=== PATIENT | female | born 1985 | race Caucasian/White ===

== ENCOUNTER → 2018-04-28 | Outpatient (CLI) | payer SELFPAY ==
--- NOTE | 2018-04-28 15:52 | RADIOLOGY REPORT (SQ) ---
EXAM DESCRIPTION: U/S [id number] TRNABD 1GES W/ODOP COMPLETED DATE/TIME: 04/28/2018 3:02 pm REASON FOR STUDY: ENCOUNTER FOR SUPERVISION OF OTHER NORMAL , FIRST TRIMESTER Z34.81 ENCO UNTER FOR SUPRVSN OF NORMAL , FIRST TRIM COMPARISON: None. TECHNIQUE: Transvaginal static and realtime grayscale images acquired of the pelvis. Additional diogenes cted spectral and color Doppler images recorded. All images stored on PACs. [facility] [place] Not available. CLINICAL DATES: LMP 01/26/2018 13 weeks 1 day LIMITATIONS: None. FINDINGS: FETUS: Living intrauterine . ULTRASOUND EGA: 9 weeks 1 day ULTRASOUND DONY: 12/01/2018 CRL: 2.4 cm FHR: 171 beats per minute. SUBCHORIONIC BLEED: No SIZE OF BLEED: Not applicable. UTERUS: No masses or anomalies. 14 x 7.1 x 10 cm. CERVICAL LENGTH: 3.6 cm. Closed. RIGHT ADNEXA: Normal ovary with normal vascular flow. 3 x 3.1 x 1.7 cm. No adnexal free fluid. No adnexal masses. LEFT ADNEXA: Ovary not seen. No adnexal free fluid. No adnexal masses. FREE FLUID: None. OTHER: No other significant finding. IMPRESSION: LIVING INTRAUTERINE . EGA 9 weeks 1 day Trimester of : First - 0 to 13 weeks. TECHNICAL DOCUMENTATION: JOB ID: [id number] [employer]- All Rights Reserved rev-02/10 Reading location - IP/workstation name: [email or web address]
== END ==
LOC: WI 15:43
PROVIDERS: ATTEND Nurse Practitioner Women's Health
DX: Z34.81 Encounter for supervision of other normal pregnancy, first trimester (principal)
CPT/HCPCS: 76801

== ENCOUNTER 2018-06-18 07:34 | Emergency (ER) | payer MEDICAID ==
[2018-06-18 08:40] LABS: ABSOLUTE LYMPHOCYTES (AUTO) 0.9 10^3/uL (0.5-4.7); ABSOLUTE MONOCYTES (AUTO) 0.6 10^3/uL (0.1-1.4); BASOPHILS % (AUTO) 0.2 % (0-2); EOSINOPHILS % (AUTO) 0.1 % (0-6); HEMATOCRIT 38.1 % (36.0-47.0); HEMOGLOBIN 12.9 g/dL (12.0-15.5); LYMPHOCYTES % (AUTO) 7.5 % (13-45); MEAN CORPUSCULAR HEMOGLOBIN 27.3 pg (27.0-33.4); MEAN CORPUSCULAR HGB CONC 33.9 g/dL (32.0-36.0); MEAN CORPUSCULAR VOLUME 81 fl (80-97); MONOCYTES % (AUTO) 5.3 % (3-13); PLATELET COUNT 288 10^3/uL (150-450); RED BLOOD COUNT 4.73 10^6/uL (3.72-5.28); RED CELL DISTRIBUTION WIDTH 13.3 % (11.5-14.0); SEGMENTED NEUTROPHILS % (AUTO) 86.9 % (42-78); TOTAL CELLS COUNTED % (AUTO) 100 %; WHITE BLOOD COUNT 11.5 10^3/uL (4.0-10.5)
[2018-06-18] MEDS ORDERED: NORMAL SALINE 1000 ML 1,000 ML IV PRN (08:41)
[2018-06-18 08:51] LABS: APPEARANCE,URINE SLIGHTLY-CLOUDY; BILIRUBIN,URINE NEGATIVE (NEGATIVE); COLOR,URINE YELLOW; GLUCOSE, URINE NEGATIVE (NEGATIVE); KETONES,URINE 80 mg/dL (NEGATIVE); LEUKOCYTE ESTERASE,URINE NEGATIVE (NEGATIVE); NITRITE,URINE NEGATIVE (NEGATIVE); PROTEIN,URINE 30 mg/dL (NEGATIVE); URINE SPECIFIC GRAVITY 1.025
[2018-06-18 08:57] LABS: ALANINE AMINOTRANSFERASE 13 U/L (9-52); ALKALINE PHOSPHATASE 89 U/L (38-126); ANION GAP 9 (5-19); ASPARTATE AMINO TRANSFERASE 18 U/L (14-36); BILIRUBIN,DIRECT 0.5 mg/dL (0.0-0.4); BILIRUBIN,TOTAL 0.6 mg/dL (0.2-1.3); BLOOD UREA NITROGEN 6 mg/dL (7-20); CALCIUM 9.3 mg/dL (8.4-10.2); CARBON DIOXIDE 23 mmol/L (22-30); CHLORIDE 104 mmol/L (98-107); GLUCOSE 102 mg/dL (75-110); LIPASE 95.2 U/L (23-300); SODIUM 136.2 mmol/L (137-145)
[2018-06-18] MEDS ORDERED: DICYCLOMINE HCL INJ 20 MG/2 ML AMPULE IM PRN (09:46)
[2018-06-18] MEDS ORDERED: NORMAL SALINE 1000 ML 1,000 ML IV ONE (11:08)
[2018-06-18 12:59] LABS: URINE AMPHETAMINES SCREEN NEGATIVE; URINE BARBITURATES SCREEN NEGATIVE; URINE BENZODIAZEPINES SCREEN NEGATIVE; URINE COCAINE SCREEN NEGATIVE; URINE MARIJUANA (THC) SCREEN NEGATIVE; URINE METHADONE SCREEN NEGATIVE; URINE PHENCYCLIDINE SCREEN NEGATIVE
--- NOTE | 2018-06-18 13:23 | RADIOLOGY REPORT (SQ) ---
EXAM DESCRIPTION: U/S OB 14+ TRNABD 1GES W/O DOP COMPLETED DATE/TIME: 06/18/2018 12:59 pm REASON FOR STUDY: right abd pain and flank COMPARISON: 04/28/2018 OB ultrasound TECHNIQUE: Static and Dynamic grayscale imaging performed of gravid uterus using transabdominal appr oach. Additional selected color Doppler and spectral images recorded. All stored on PACS. LIMITATIONS: None. FINDINGS: Quantitative HCG 47,967 EGA: By multiple measurements, 16 weeks 2 days DONY: 12/01/2018 EFW: Not calculated PERCENTILE: Not applicable. Fetus less than or equal to 20 weeks gestation. COLLIN: Adequate PLACENTA: Developing anteriorly. During the study a Mitchell Condon contraction came and went PRESENTATION: Variable ANATOMY: HEART RATE: 160 beats per minute. FOUR CHAMBER HEART: Not well seen THREE VESSEL CORD: Not well seen CORD INSERTION: Not well seen KIDNEYS AND BLADDER: Visualized. Appear normal. STOMACH: Visualized. Appears normal. SPINE: Normal as visualized. BRAIN AND LATERAL VENTRICLES: Visualized. Appear normal. OTHER: No other significant finding. MATERNAL ADNEXA: Maternal ovaries not visualized. CERVICAL LENGTH: Not visualized. OTHER: No other significant finding. IMPRESSION: LIVING INTRAUTERINE . ESTIMATED GESTATIONAL AGE 16 weeks 2 days NO VISUALIZED ANOMALIES. Trimester of : Second trimester - 13 weeks 1 day to 27 weeks 6 days. TECHNICAL DOCUMENTATION: JOB ID: [id number] [employer]- All Rights Reserved Reading location - IP/workstation name: [email or web address]
--- NOTE | 2018-06-18 13:25 | RADIOLOGY REPORT (SQ) ---
EXAM DESCRIPTION: U/S RETROPERITON LTD COMPLETED DATE/TIME: 06/18/2018 12:59 pm REASON FOR STUDY: right abd pain and flank COMPARISON: OB ultrasound same date TECHNIQUE: Dynamic and static grayscale images acquired of the kidneys and bladder and recorded on P ACS. Additional selected color Doppler and spectral images recorded. LIMITATIONS: None. FINDINGS: RIGHT KIDNEY: Normal size, 10.8 cm in length. Normal echogenicity. No solid or suspic ious masses. No hydronephrosis. No calcifications. LEFT KIDNEY: Normal size, 11.6 cm in length. Normal echogenicity. No solid or suspicious masses. No hydronephrosis. No calcifications. BLADDER: No masses. OTHER FINDINGS: No other significant finding. IMPRESSION: NORMAL RENAL AND BLADDER ULTRASOUND. TECHNICAL DOCUMENTATION: JOB ID: [id number] [employer]- All Rights Reserved Reading location - IP/workstation name: [email or web address]
[2018-06-18] MEDS ORDERED: MORPHINE SULFATE 10 MG/ML INJ IV ONE ×2 (13:54→17:07)
[2018-06-18] MEDS ORDERED: PROMETHAZINE HCL INJ 25 MG/1 ML VIAL IV ONE (13:54)
--- NOTE | 2018-06-18 16:08 | RADIOLOGY REPORT (SQ) ---
EXAM DESCRIPTION: MRI PELVIS WITHOUT COMPLETED DATE/TIME: 06/18/2018 1:58 pm REASON FOR STUDY: possible appendisitis COMPARISON: OB ultrasound 06/18/2018 Renal ultrasound 06/18/2018 TECHNIQUE: Multiplanar multisequence imaging performed without contrast including axial, sagittal an d coronal T2, axial T1, sagittal inversion recovery. LIMITATIONS: None. FINDINGS: The patient is 16 weeks , with right flank and right pelvic pain. Non contrasted MRI of the abdomen and pelvis was performed, with axial T2 and T1, coronal T2 and T1 n on contrasted images. The appendix is identified along the rightward lateral aspect of cecum, on coronal series 13, image 2 0. No periappendiceal fluid or inflammation in the adjacent fat. Gravid uterus with 16 week fetus in the pelvis. Normal size ovaries. No free pelvic fluid. No hydr onephrosis or hydroureter. Limited view of the pancreas and upper abdominal organs unremarkable. IMPRESSION: No MR evidence of acute appendicitis. TECHNICAL DOCUMENTATION: JOB ID: [id number] [employer]- All Rights Reserved Reading location - IP/workstation name: [email or web address]
--- NOTE | 2018-06-18 17:03 | ER Document Report ---
ED GI/ - General Chief Complaint: Nausea/Vomiting/Diarrhea Stated Complaint: VOMITING Time Seen by Provider: 06/18/18 09:28 Mode of Arrival: Ambulatory Information source: Patient Notes: Patient is a 33-year-old female who states she is approximately 16 weeks . She also states that she is 7 para 6. She comes in with complaint of right lower quadrant pain with diffuse upper abdominal discomfort. Patient states that she started with the pain and discomfort last night and it has gotten worse throughout the day today. She states she is nauseated and feels like she has something in the right lower quadrant that is pulling. She denies fever she denies dysuria she denies discharge patient also is with her mother who informs me that patient has lost sensation in her legs secondary to the epidural that she received in 2017. Patient is also had a cholecystectomy 2 years ago. TRAVEL OUTSIDE OF THE [place] IN LAST 30 DAYS: No - HPI Patient complains to provider of: Abdominal pain, Flank pain, Pelvic pain, Onset: Other - Last evening Timing/Duration: Sudden Quality of pain: Burning, Cramping, Throbbing Severity at maximum: Severe Severity in ED: Moderate Pain Level: 3 Context: Location: RLQ, Right flank, Pelvis Vaginal bleeding (Compared to normal period): None Menstrual period history: : 7 Para: 6 Abortions: 0 Sexual history: Active Associated symptoms: Diarrhea Exacerbated by: Movement, Walking Relieved by: Denies Similar symptoms previously: No Recently seen / treated by doctor: No - Related Data Allergies/Adverse Reactions: No Known Allergies Allergy (Unverified 06/18/18 07:35) Past Medical History - General Information source: Patient, Relative - Social History Smoking Status: Unknown if Ever Smoked Cigarette use (# per day): No Chew tobacco use (# tins/day): No Smoking Education Provided: No Frequency of alcohol use: None Drug Abuse: None Lives with: Family Family History: Reviewed & Not Pertinent Patient has suicidal ideation: No Patient has homicidal ideation: No - Medical History Medical History: Negative Renal/ Medical History: Denies: Hx Peritoneal Dialysis Review of Systems - Review of Systems Constitutional: No symptoms reported EENT: No symptoms reported Cardiovascular: No symptoms reported Respiratory: No symptoms reported Gastrointestinal: Abdominal pain, Nausea, Vomiting Genitourinary: See HPI, Flank pain. denies: Dysuria, Hematuria, Urgency, Retention Female Genitourinary: See HPI Musculoskeletal: No symptoms reported Skin: No symptoms reported Hematologic/Lymphatic: No symptoms reported Neurological/Psychological: No symptoms reported -: Yes All other systems reviewed and negative Physical Exam - Vital signs Vitals: Temp Pulse Resp BP Pulse Ox 98.2 F 98 20 113/62 99 06/18/18 07:39 06/18/18 07:39 06/18/18 07:39 06/18/18 07:39 06/18/18 07:39 Interpretation: Normal - Notes Notes: Patient is a 33-year-old female no apparent distress but uncomfortable appearing. - General General appearance: Alert - HEENT Head: Normocephalic, Atraumatic Eyes: Normal Conjunctiva: Normal Pharynx: Normal Neck: Normal - Respiratory Respiratory status: No respiratory distress Chest status: Nontender Breath sounds: Normal. No: Rales, Rhonchi, Stridor, Wheezing Chest palpation: Normal - Cardiovascular Rhythm: Regular Heart sounds: Normal auscultation Murmur: No - Abdominal Distension: No distension Bowel sounds: Normal Tenderness: Tender, McBurney's point, Guarding. No: Shea's sign, Rebound Organomegaly: No organomegaly - Genitourinary Vaginal bleeding: None Notes: Examination of patient's abdomen and pelvic area shows that she has a abdomen. Fundus is approximately the gestational age of 16 weeks. Mild tenderness suprapubically to palpation. Patient also has some right sided tenderness to palpation. She has some mild guarding on the right lower quadrant area. Presentation is that the presents itself as round ligament syndrome however cannot totally exclude the possibility of appendicitis. - Back Back: Normal - Extremities General upper extremity: Normal inspection, Nontender, Normal ROM, Normal strength General lower extremity: Normal inspection, Nontender, Normal ROM, Normal strength - Neurological Neuro grossly intact: Yes Cognition: Normal Orientation: AAOx4 [place] Coma Scale Eye Opening: Spontaneous [place] Coma Scale Verbal: Oriented [place] Coma Scale Motor: Obeys Commands [place] Coma Scale Total: 15 - Skin Skin Temperature: Warm Skin Moisture: Dry Skin Color: Normal, [place] Course - Re-evaluation Re-evalutation: 06/18/18 17:47 Findings; patient is been an extremely difficult medical patient to follow. She is 16 weeks and I did the ultrasound to show there was no abnormalities with the fetus. Ultrasound comes back negative for any acute findings and fetus is in good shape at 16 weeks. I also added on a renal ultrasound given the fact that she had flank pain on that right side. Renal ultrasound came back negative. I proceeded to do 2 rounds of fluid boluses I also used Bentyl 10 mg IM trying to relieve patient's discomfort. We have also tried doing positional body laying without any success in reduction reduction of pain. Patient had a slightly elevated white count however white count is expected in . Given that she continues to hurt in her right lower quadrant area I discussed the case with Dr. Wheeler and felt that we needed to go with the MRI of the abdomen to rule out appendicitis. I sit down with patient and mother explained to them the reasoning behind doing the MRI the risks that were involved with the MRI and the radiologist would talk to them about giving clearance as well. I explained to them that if it is not an appendicitis it still could be the round ligament syndrome that is just presented itself in a prominent manner. So I could not guarantee that doing the MRI was going to be 100% diagnostic. Patient elected on her own to do the MRI. MRI results come back and appendix is normal and there were no acute findings on it either. Given the patient's other labs are normal her urine is clean we have to assume at this point this is a round ligament syndrome that is just not responding to the fluid boluses and/or the Bentyl. Patient has stated has had 6 live births and she has a FABRICATOR INDUSTRIAL FURNACE she can contact first thing in the morning. I have given her a copy of the MRI. And informed her that she needs to see that UNDERGROUND TRUCK OPERATOR first thing in the morning. Patient and mother agree they will follow this path however they will return to ER if there are any concerns or problems that arise between now and then. - Vital Signs Vital signs: Temp Pulse Resp BP Pulse Ox 98.2 F 98 20 113/62 99 06/18/18 07:39 06/18/18 07:39 06/18/18 07:39 06/18/18 07:39 06/18/18 07:39 - Laboratory Result Diagrams: 06/18/18 08:33 06/18/18 08:33 Laboratory results interpreted by me: 06/18/18 06/18/18 06/18/18 08:33 08:33 08:33 WBC 11.5 H Seg Neutrophils % 86.9 H Lymphocytes % 7.5 L Absolute Neutrophils 10.0 H Sodium 136.2 L BUN 6 L Direct Bilirubin 0.5 H Beta HCG, Quant 46667.00 H Urine Protein 30 H Urine Ketones 80 H Urine Urobilinogen 4.0 H Discharge - Discharge Clinical Impression: Abdominal pain affecting , Round ligament pain Disposition: HOME, SELF-CARE Instructions: Antinausea Medication ([facility]), Antispasmodics ([facility]), Diarrhea, Nonspecific ([facility]), Vomiting ([facility]), Pelvic Pain in and Round Ligament Pain ([facility]) Additional Instructions: Them and rest. I have written you for some Bentyl which may help orally. Also written for some Phenergan for nausea. As we discussed the importance of follow -up with your UNDERGROUND TRUCK OPERATOR tomorrow take him a copy of the MRI report. Return to ER if you have any concerns or problems. Prescriptions: Dicyclomine HCl [Bentyl 20 mg Tablet] 20 mg PO QID PRN #20 tablet PRN Reason: Promethazine HCl 25 mg PO Q6 PRN #15 tablet PRN Reason:
[2018-06-18 17:55] VITALS: BP 111/64
== END 2018-06-18 18:03 | disposition home or self-care (01) ==
LOC: ER 07:34
DX: O26.892 Other specified pregnancy related conditions, second trimester (principal); R10.2 Pelvic and perineal pain; R10.31 Right lower quadrant pain; R19.7 Diarrhea, unspecified; O21.9 Vomiting of pregnancy, unspecified; Z3A.16 16 weeks gestation of pregnancy; Z90.49 Acquired absence of other specified parts of digestive tract
CPT/HCPCS: 96376; 99284; 96372; 96361; 96374; 96375; 36415; 84702; 83690; 85025; 80053; 81001; 80307; 72195; 76775; 76805; J0500; J2270; J2550

== ENCOUNTER 2018-10-21 12:47 | Outpatient (CLI) | payer MEDICAID ==
[2018-10-21 16:17] LABS: APPEARANCE,URINE CLEAR; BILIRUBIN,URINE NEGATIVE (NEGATIVE); COLOR,URINE YELLOW; GLUCOSE, URINE NEGATIVE (NEGATIVE); KETONES,URINE 80 mg/dL (NEGATIVE); LEUKOCYTE ESTERASE,URINE NEGATIVE (NEGATIVE); NITRITE,URINE NEGATIVE (NEGATIVE); PROTEIN,URINE NEGATIVE (NEGATIVE)
[2018-10-21 16:23] LABS: URINE AMPHETAMINES SCREEN NEGATIVE; URINE BARBITURATES SCREEN NEGATIVE; URINE BENZODIAZEPINES SCREEN NEGATIVE; URINE COCAINE SCREEN NEGATIVE; URINE MARIJUANA (THC) SCREEN NEGATIVE; URINE METHADONE SCREEN NEGATIVE; URINE PHENCYCLIDINE SCREEN NEGATIVE
[2018-10-21] MEDS ORDERED: TERBUTALINE SULFATE INJ/PF 1 MG/1 ML SDV ONE (17:08)
== END 2018-10-21 18:35 | disposition home or self-care (01) ==
LOC: LC 12:47
PROVIDERS: ATTEND Obstetrics & Gynecology
PROC: 4A1HXCZ Monitoring of Products of Conception, Cardiac Rate, External Approach (ICD-10-PCS; principal; 2018-10-21)
DX: Z34.93 Encounter for supervision of normal pregnancy, unspecified, third trimester (principal)
CPT/HCPCS: 80307; 81001; J3105

== ENCOUNTER 2018-11-21 11:24 | Outpatient (CLI) | payer MEDICAID ==
[2018-11-21 12:41] LABS: APPEARANCE,URINE SLIGHTLY-CLOUDY; BILIRUBIN,URINE NEGATIVE (NEGATIVE); COLOR,URINE YELLOW; GLUCOSE, URINE NEGATIVE (NEGATIVE); KETONES,URINE 20 mg/dL (NEGATIVE); LEUKOCYTE ESTERASE,URINE TRACE (NEGATIVE); NITRITE,URINE NEGATIVE (NEGATIVE); PROTEIN,URINE NEGATIVE (NEGATIVE); URINE SPECIFIC GRAVITY 1.006; UROBILINOGEN,URINE NEGATIVE mg/dL (<2.0)
[2018-11-21 14:00] LABS: URINE AMPHETAMINES SCREEN NEGATIVE; URINE BARBITURATES SCREEN NEGATIVE; URINE BENZODIAZEPINES SCREEN NEGATIVE; URINE COCAINE SCREEN NEGATIVE; URINE MARIJUANA (THC) SCREEN NEGATIVE; URINE METHADONE SCREEN NEGATIVE; URINE PHENCYCLIDINE SCREEN NEGATIVE
[2018-11-21] MEDS ORDERED: HYDROXYZINE PAMOATE 50 MG CAPSULE ONE (14:35)
[2018-11-21] MEDS ORDERED: HYDROXYZINE PAMOATE 50 MG CAPSULE PO ONE (14:37)
--- NOTE | 2018-11-21 14:46 | Non Stress Test Report ---
Non Stress Test Datetime Report Generated by CPN: 11/21/2018 14:46 DEMOGRAPHIC EGA NST: 38.6 INDICATION Indication for Study: Ordered by Provider Indication for Study: Ordered by Provider Indication for Study (NST) Other: LC MONITORING Monitor Explained: Monitor Explained; Test Explained; Patient Verbalized Understanding Monitor Explained: Monitor Explained; Test Explained; Patient Verbalized Understanding Time on Monitor: 11/21/2018 11:42 Time on Monitor: 10/21/2018 13:08 Time off Monitor: 11/21/2018 12:30 Time off Monitor: 10/21/2018 15:45 NST Duration: 48 NST Duration: 157 NST INTERVENTIONS NST Interventions: PO Hydration NST Interventions: PO Hydration; IV Fluids; Reposition Patient Physician Notified NST: Zackary Shannon CNM Physician Notified NST: Dr. Woods BABY A: [id number] BABY A Movement : Present Movement : Present Contraction Frequency : irregular Contraction Frequency : 2-3 FHR Baseline : 135 Accelerations : 15X15 Accelerations : 15X15 Decelerations : None Variability : Moderate 6-25bpm Variability : Moderate 6-25bpm NST Review: Meets Criteria for Reactive NST NST Review: Meets Criteria for Reactive NST NST Review and Verified By : Bhavna Vee RNC NST Review and Verified By : Jesus Bashir RNC-OB NST Results: Reactive NST Results: Reactive NST REPORT Report Trigger: Send Report
--- NOTE | 2018-11-21 14:51 | Non Stress Test Report ---
Non Stress Test Datetime Report Generated by CPN: 11/21/2018 14:51 DEMOGRAPHIC EGA NST: 38.6 INDICATION Indication for Study: Ordered by Provider MONITORING Monitor Explained: Monitor Explained; Test Explained; Patient Verbalized Understanding Time on Monitor: 11/21/2018 11:30 Time off Monitor: 11/21/2018 12:30 NST Duration: 60 NST INTERVENTIONS NST Interventions: PO Hydration Physician Notified NST: N Shannon CNM BABY A Movement : Present Contraction Frequency : irregular FHR Baseline : 135 Accelerations : 15X15 Accelerations : 15X15 Decelerations : None Decelerations : None Variability : Moderate 6-25bpm NST Review: Meets Criteria for Reactive NST NST Review and Verified By : DAREN Rcici Results: Reactive NST REPORT Report Trigger: Send Report
== END 2018-11-21 14:49 | disposition home or self-care (01) ==
LOC: LC 11:24
PROVIDERS: ATTEND Student in an Organized Health Care Education/Training Program
PROC: 4A1HXCZ Monitoring of Products of Conception, Cardiac Rate, External Approach (ICD-10-PCS; principal; 2018-11-21)
DX: Z34.93 Encounter for supervision of normal pregnancy, unspecified, third trimester (principal)
CPT/HCPCS: 59025; 81005; 80307; J3490

== ENCOUNTER 2018-12-01 14:10 | Outpatient (CLI) | payer MEDICAID ==
--- NOTE | 2018-12-01 15:04 | Non Stress Test Report ---
Non Stress Test Datetime Report Generated by CPN: 12/01/2018 15:04 DEMOGRAPHIC EGA NST: 40.2 INDICATION Indication for Study: Ordered by Provider Indication for Study (NST) Other: postdates repeat from office MONITORING Monitor Explained: Monitor Explained; Test Explained; Patient Verbalized Understanding Time on Monitor: 12/01/2018 14:19 Time off Monitor: 12/01/2018 14:50 NST Duration: 31 NST INTERVENTIONS NST Interventions: PO Hydration; Reposition Patient Physician Notified NST: J Villa CNM BABY A: [id number] BABY A Movement : Present Contraction Frequency : irrit FHR Baseline : 140 Accelerations : 15X15 Decelerations : None Variability : Moderate 6-25bpm NST Review: Meets Criteria for Reactive NST NST Review and Verified By : DAREN Fletcher Results: Reactive NST REPORT Report Trigger: Send Report
== END 2018-12-01 14:53 | disposition home or self-care (01) ==
LOC: LC 14:10
PROVIDERS: ATTEND Obstetrics & Gynecology
DX: O36.8390 Maternal care for abnormalities of the fetal heart rate or rhythm, unspecified trimester, not applicable or unspecified (principal)
CPT/HCPCS: 59025

== ENCOUNTER 2018-12-03 18:27 | Outpatient (CLI) | payer MEDICAID ==
[2018-12-03 19:07] LABS: APPEARANCE,URINE SLIGHTLY-CLOUDY; BILIRUBIN,URINE NEGATIVE (NEGATIVE); COLOR,URINE STRAW; GLUCOSE, URINE NEGATIVE (NEGATIVE); KETONES,URINE NEGATIVE (NEGATIVE); LEUKOCYTE ESTERASE,URINE NEGATIVE (NEGATIVE); NITRITE,URINE NEGATIVE (NEGATIVE); PROTEIN,URINE NEGATIVE (NEGATIVE); URINE SPECIFIC GRAVITY 1.003; UROBILINOGEN,URINE NEGATIVE mg/dL (<2.0)
[2018-12-03 19:22] LABS: URINE AMPHETAMINES SCREEN NEGATIVE; URINE BARBITURATES SCREEN NEGATIVE; URINE BENZODIAZEPINES SCREEN NEGATIVE; URINE COCAINE SCREEN NEGATIVE; URINE MARIJUANA (THC) SCREEN NEGATIVE; URINE METHADONE SCREEN NEGATIVE; URINE PHENCYCLIDINE SCREEN NEGATIVE
[2018-12-03 19:25] LABS: ABSOLUTE EOSINOPHILS # (AUTO) 0.1 10^3/uL (0.0-0.6); ABSOLUTE LYMPHOCYTES (AUTO) 2.3 10^3/uL (0.5-4.7); ABSOLUTE MONOCYTES (AUTO) 0.7 10^3/uL (0.1-1.4); ABSOLUTE NEUT (AUTO) 7.7 10^3/uL (1.7-8.2); BASOPHILS % (AUTO) 0.3 % (0-2); EOSINOPHILS % (AUTO) 0.6 % (0-6); HEMATOCRIT 30.1 % (36.0-47.0); HEMOGLOBIN 10.1 g/dL (12.0-15.5); LYMPHOCYTES % (AUTO) 21.2 % (13-45); MEAN CORPUSCULAR HEMOGLOBIN 25.5 pg (27.0-33.4); MEAN CORPUSCULAR HGB CONC 33.6 g/dL (32.0-36.0); MEAN CORPUSCULAR VOLUME 76 fl (80-97); MONOCYTES % (AUTO) 6.7 % (3-13); PLATELET COUNT 296 10^3/uL (150-450); RED BLOOD COUNT 3.98 10^6/uL (3.72-5.28); RED CELL DISTRIBUTION WIDTH 14.5 % (11.5-14.0); SEGMENTED NEUTROPHILS % (AUTO) 71.2 % (42-78); TOTAL CELLS COUNTED % (AUTO) 100 %; WHITE BLOOD COUNT 10.8 10^3/uL (4.0-10.5)
[2018-12-03 19:34] LABS: UR PRO/CREAT RATIO RESULT 0.8 mg/mg (0.0-0.2); URINE CREATININE 23.4 mg/dL (16-327); URINE PROTEIN 18.6 mg/dL (<12)
[2018-12-03 19:45] LABS: ALANINE AMINOTRANSFERASE 11 U/L (9-52); ALBUMIN 3.4 g/dL (3.5-5.0); ALKALINE PHOSPHATASE 248 U/L (38-126); ANION GAP 8 (5-19); ASPARTATE AMINO TRANSFERASE 18 U/L (14-36); BILIRUBIN,DIRECT 0.1 mg/dL (0.0-0.4); BILIRUBIN,TOTAL 0.4 mg/dL (0.2-1.3); BLOOD UREA NITROGEN 8 mg/dL (7-20); CALCIUM 9.2 mg/dL (8.4-10.2); CARBON DIOXIDE 24 mmol/L (22-30); CHLORIDE 103 mmol/L (98-107); GLUCOSE 106 mg/dL (75-110); SODIUM 134.9 mmol/L (137-145); URIC ACID 4.5 mg/dL (2.5-6.2)
--- NOTE | 2018-12-03 20:34 | L&D Progress Notes ---
PROGRESS NOTES Datetime Report Generated by CPN: 12/03/2018 20:34 PROGRESS NOTE Impression Other: irregular contractions, headache Procedures- Other: monitor Plan Other: PIH labs Vital Signs : Reviewed; Within Normal Limits Comment: Pt states that she has had a headache x 3 days. PIH work up Negative, except UTP 0.8. Pt does not want to try any meds for her headache. Has appt in the office on Tuesday. Cervix 2/50%/-3/ballotable. LAST VAGINAL EXAM-NURSING Dilitation: 2.0 Dilitation: 1.5 Dilitation: ft Dilitation: 1.0 Dilitation: 1.0 Effacement: 50 Effacement: 50 Effacement: thick Effacement: thick Effacement: thick Station: ballotable Station: -2 Station: -2 Contractions: irritability present FETUS A FHR - Baseline: 160s Monitoring: External US Variability: Moderate 6-25bpm Accelerations: 15X15 Decelerations: None FHR Category: Category I : 40.4 SIGNATURE SIGNATURE: [id number];,[id number] SIGNATURE: [id number] SIGNATURE: [id number] SIGNATURE: [id number] Signature: with User ID: [email or web address]
== END 2018-12-03 20:43 | disposition home or self-care (01) ==
LOC: LC 18:27
PROVIDERS: ATTEND Obstetrics & Gynecology
PROC: 4A1HXCZ Monitoring of Products of Conception, Cardiac Rate, External Approach (ICD-10-PCS; principal; 2018-12-03)
DX: O47.1 False labor at or after 37 completed weeks of gestation (principal); O26.893 Other specified pregnancy related conditions, third trimester; R51 Headache; O48.0 Post-term pregnancy; Z3A.40 40 weeks gestation of pregnancy
CPT/HCPCS: 36415; 59025; 80053; 80307; 81005; 82570; 83615; 84156; 84550; 85025

== ENCOUNTER 2018-12-08 06:33 | Inpatient (IN) | payer MEDICAID ==
--- NOTE | 2018-12-08 06:35 | Non Stress Test Report ---
Non Stress Test Datetime Report Generated by CPN: 12/08/2018 06:35 DEMOGRAPHIC Test Number: 5 EGA NST: 40.4 INDICATION Indication for Study: Ordered by Provider URINE RESULTS Urine Protein, NST: Negative Urine Ketones - NST: Negative Urine Glucose - NST: Negative Urine Blood - NST: Negative MONITORING Monitor Explained: Monitor Explained; Test Explained; Patient Verbalized Understanding Time on Monitor: 12/03/2018 18:40 Time off Monitor: 12/03/2018 20:35 NST Duration: 115 NST INTERVENTIONS NST Interventions: None Physician Notified NST: Dr. Younger BABY A: [id number] BABY A Movement : Present Contraction Frequency : irregular FHR Baseline : 150 Accelerations : 15X15 Variability : Moderate 6-25bpm NST Review: Meets Criteria for Reactive NST NST Review and Verified By : ELIAN Pan NST Results: Reactive NST REPORT Report Trigger: Send Report
[2018-12-08] MEDS ORDERED: RINGERS SOLUTION,LACTATED 1,000 ML IV ONE (06:46)
[2018-12-08 07:36] LABS: ABSOLUTE BASOPHILS # (AUTO) 0.1 10^3/uL (0.0-0.2); ABSOLUTE EOSINOPHILS # (AUTO) 0.1 10^3/uL (0.0-0.6); ABSOLUTE LYMPHOCYTES (AUTO) 2.4 10^3/uL (0.5-4.7); ABSOLUTE MONOCYTES (AUTO) 0.8 10^3/uL (0.1-1.4); ABSOLUTE NEUT (AUTO) 5.6 10^3/uL (1.7-8.2); BASOPHILS % (AUTO) 0.8 % (0-2); EOSINOPHILS % (AUTO) 0.8 % (0-6); HEMATOCRIT 30.5 % (36.0-47.0); HEMOGLOBIN 10.3 g/dL (12.0-15.5); LYMPHOCYTES % (AUTO) 27.1 % (13-45); MEAN CORPUSCULAR HEMOGLOBIN 25.5 pg (27.0-33.4); MEAN CORPUSCULAR HGB CONC 33.7 g/dL (32.0-36.0); MEAN CORPUSCULAR VOLUME 76 fl (80-97); MONOCYTES % (AUTO) 8.6 % (3-13); PLATELET COUNT 281 10^3/uL (150-450); RED BLOOD COUNT 4.02 10^6/uL (3.72-5.28); RED CELL DISTRIBUTION WIDTH 14.5 % (11.5-14.0); SEGMENTED NEUTROPHILS % (AUTO) 62.7 % (42-78); TOTAL CELLS COUNTED % (AUTO) 100 %; WHITE BLOOD COUNT 8.9 10^3/uL (4.0-10.5)
--- NOTE | 2018-12-08 07:47 | Admission Physical ---
Datetime Report Generated by CPN: 12/08/2018 07:46 CURRENT ADMISSION Chief Complaint: Scheduled Induction of Labor Indication for Induction: Post Dates Admit Impression : Term, Intrauterine ; No Active Labor Admit Plan: Admit to Unit; Initiate Labor Induction Protocol ALLERGIES Medication Allergies: No Medication Allergies: No Known Allergies (12/08/2018) Latex: No Latex Allergies Food Allergies: None Environmental Allergies: None OBSTETRICAL HISTORY EDC: 11/29/2018 00:00 : 7 Para: 6 Term: 6 : 0 SAB: 0 IAB: 0 Ectopic: 0 Livin Cesareans: 0 VBACs: 0 Multiple Births: 0 Gestational Diabetes: No Rh Sensitization: No Incompetent Cervix: No DEBI: No Infertility: No ART Treatment: No Uterine Anomaly: No IUGR: No Hx Previous C/S: No Macrosomia: No Hx Loss/Stillborn: No PIH: No Hx : No Placenta Previa/Abruption: No Depression/PP Depression: No PTL/PROM: No Post Hemorrhage: Yes Current Procedures: Ultrasound; NST Obstetrical History Comments: G1- 2005, G2- 2008, G3- 2009, , GDM, and hemorrage, D_D. G4- 2011, G5- 2015, G6- 2016, , GDM G7- Current SEE RECORDS Alcohol: No Marijuana : No Cocaine: No Other Illicit Drugs: No Cigarettes: Never Smoker. [id number] MEDICAL HISTORY Diabetes: No Blood Transfusion: No Pulmonary Disease (Asthma, TB): No Breast Disease: No Hypertension: No Rubber Goods Assembler Surgery: No Heart Disease: No Hosp/Surgery: Yes Autoimmune Disorder: No Anesthetic Complications: No Kidney Disease: No Abnormal Pap Smear: No Neuro/Epilepsy: No Psychiatric Disorders: No Other Medical Diseases: No Hepatitis/Liver Disease: No Significant Family History: No Varicosities/Phlebitis: No Trauma/Violence : No Thyroid Dysfunction: No Medical History Comments: Hospitalizaton childbirth, Gallbladder removed. Abnormal Pap smear- 2009 INFECTIOUS HISTORY Gonorrhea: No Genital Herpes: No Chlamydia: No Tuberculosis: No Syphilis: No Hepatitis: No HIV/AIDS Exposure: No Rash or Viral Illness: No HPV: No PHYSICAL EXAM General: Normal HEENT: Normal Neurologic: Normal Thyroid: Normal Heart: Normal Lungs: Normal Breast: Normal Back: Normal Abdomen: Normal Genitourinary Exam: Normal Extremities: Normal DTRs: Normal Pelvic Type: Adequate Vital Signs: Reviewed; Within Normal Limits VAGINAL EXAM Dilatation: 2-3 Effacement: 50 Station: -3 Contraction Comments: irregular MEMBRANES Membranes: Intact FETUS A EGA: 41.2 Monitoring: External US FHR- Baseline: 140s Decelerations: None FHR Category: Category I Admit Comment: GBS Neg PLANS FOR LABOR AND DELIVERY Labor and Delivery: None Pain Management: Natural Feeding Preference: Breast Circumcision: Yes INFORMED CONSENT Signature: with User ID: [email or web address]
[2018-12-08] MEDS ORDERED: NORMAL SALINE 250 ML IV PRN (08:19)
--- NOTE | 2018-12-08 08:35 | L&D Progress Notes ---
PROGRESS NOTES Datetime Report Generated by CPN: 12/08/2018 08:35 PROGRESS NOTE Procedures: Artificial ROM Plan: Induction Comment: at 41w here for IOL, AROM for method of induction, pitocin if needed. anticipate VAGINAL EXAM Dilatation: 4 Dilatation: 2-3 Effacement: 75 Effacement: 50 Station: -2 Station: -3 Contractions: rare Contractions: irregular LAST VAGINAL EXAM-NURSING Dilitation: 4.0 Effacement: 75 Station: -2 MEMBRANES Membranes: Ruptured Membranes: Intact Amniotic Fluid Color: Meconium, Heavy FETUS A FHR - Baseline: 155 Monitoring: External US Variability: Moderate 6-25bpm Accelerations: 15X15 Decelerations: None : 41+2 : 41.2 SIGNATURE SIGNATURE: [id number];[id number];[id number] SIGNATURE: [id number];10,[id number];14,[id number] SIGNATURE: [id number];10,[id number] Assignment: Shekhar Flynn MD Signature: with User ID: [email or web address] : with User ID: [email or web address]
[2018-12-08] MEDS ORDERED: OXYTOCIN/NORMAL SALINE 20 UNIT/1,000 ML RTUINJ IV PRN ×2 (08:55→11:28)
[2018-12-08 09:06] LABS: APPEARANCE,URINE CLOUDY; BILIRUBIN,URINE NEGATIVE (NEGATIVE); GLUCOSE, URINE NEGATIVE (NEGATIVE); KETONES,URINE NEGATIVE (NEGATIVE); LEUKOCYTE ESTERASE,URINE TRACE (NEGATIVE); NITRITE,URINE NEGATIVE (NEGATIVE); PROTEIN,URINE 30 mg/dL (NEGATIVE); URINE SPECIFIC GRAVITY 1.021
[2018-12-08 09:07] LABS: COLOR,URINE YELLOW
[2018-12-08] MEDS ORDERED: OXYTOCIN/NORMAL SALINE 20 UNIT/1,000 ML RTUINJ ONE (09:15)
[2018-12-08 09:23] LABS: URINE AMPHETAMINES SCREEN NEGATIVE; URINE BARBITURATES SCREEN NEGATIVE; URINE BENZODIAZEPINES SCREEN NEGATIVE; URINE COCAINE SCREEN NEGATIVE; URINE MARIJUANA (THC) SCREEN NEGATIVE; URINE METHADONE SCREEN NEGATIVE; URINE PHENCYCLIDINE SCREEN NEGATIVE
[2018-12-08] MEDS ORDERED: PHENYLEPHRINE HCL INJ/PF 10 MG/1 ML SDV ONE (10:05)
[2018-12-08] MEDS ORDERED: FENTANYL CITRATE INJ/PF 100 MCG/2 ML AMPUL ONE (10:05)
[2018-12-08] MEDS ORDERED: EPHEDRINE SULFATE INJ 50 MG/1 ML AMPULE ONE (10:05)
[2018-12-08] MEDS ORDERED: LIDOCAINE 1.5%/EPINEPHRINE INJ 5 ML AMP ONE (10:06)
[2018-12-08] MEDS ORDERED: BUPIVACAINE HCL 0.25 % INJ/PF (2.5 MG/1 ML) 30 ML VIAL ONE (10:06)
[2018-12-08] MEDS ORDERED: FENTANYL/BUPIVACAINE/NS/PF 0 MCG/0 ML RTUINJ EPI ONE (10:06)
--- NOTE | 2018-12-08 11:05 | Delivery Summary ---
Del Sum A-C Datetime Report Generated by CPN: 12/08/2018 11:05 DELIVERY PERSONNEL DELIVERY PERSONNEL: [id number] Delivery Doctor:: Zulma Ordoñez CNM Labor and Delivery Nurse:: Loretta Kulkarni RNcostume cutter Nurse:: ELIAN Mack Student Observers:: C Reper T Aquiles Deliver Driver/GAS PUMP ATTENDANT: Ortega Kwan, PRIOR AUTHORIZATION TECHNICIAN MATERNAL INFORMATION Delivery Anesthesia: None Medications After Delivery: Pitocin Drip 20 Units/1000ml NSS Maternal Complications: Precipitous Labor (<3hrs) LABOR SUMMARY EDC: 11/29/2018 00:00 No. Babies in Womb: 1 Attempted: No Labor Anesthesia: None LABOR INFORMATION Reason for Induction: Post Dates Onset of Labor: 12/08/2018 10:30 Complete Dilatation: 12/08/2018 10:32 Oxytocin: Induction Group B Beta Strep: negative MEMBRANES Membranes Rupture Method: Artificial Rupture of Membranes: 12/08/2018 08:20 Length of Rupture (hr): 2.22 Amniotic Fluid Color: Moderate Meconium Amniotic Fluid Amount: Moderate Amniotic Fluid Odor: Normal STAGES OF LABOR Stage 1 hr: 0 Stage 1 min: 2 Stage 2 hr: 0 Stage 2 min: 1 Stage 3 hr: 0 Stage 3 min: 11 Total Time in Labor hr: 0 Total Time in Labor min: 14 VAGINAL DELIVERY Episiotomy: None Laceration #1: None Laceration Extension #1: N/A Laceration Repair: Not Applicable Sponge Count Correct: Yes BABY A INFORMATION Delivery Date/Time: 12/08/2018 10:33 Method of Delivery: Vaginal Born in Route : No : N/A Forceps: N/A Vacuum Extraction: N/A Shoulder Dystocia : No PRESENTATION/POSITION BABY A Presentation: Cephalic Cephalic Presentation: N/A Vertex Position: Left Occipital Anterior Breech Presentation: N/A PLACENTA INFORMATION BABY A Placenta Delivery Time : 12/08/2018 10:44 Placenta Method of Delivery: Spontaneous Placenta Status: Delivered SCORES BABY A Heart Rate 1 min: >100 bpm Resp Effort 1 min: Good Cry Reflex Irritability 1 min: Cough or Sneeze or Pulls Away Muscle Tone 1 min: Active Motion Color 1 min: Completely [place] SCORE 1 MIN: 10 Heart Rate 5 min: >100 bpm Heart Rate 10 min: >100 bpm INFANT INFORMATION BABY A Gestational Age at Delivery: 41.2 Gestational Status: Late Term- 41- 41.6 Weeks Outcome : Liveborn Condition : Stable Sex: Male IDENTIFICATION BABY A Infant Verification Date/Time: 12/08/2018 10:57 ID Band Number: [id number] Mother's Name Verified: Yes Infant RN Verifying Infant: D Bellavance RN/R Cayla RN CORD INFORMATION BABY A No. Cord Vessels: 3 Nuchal Cord : Around Neck x1, Loose ASSESSMENT BABY A Infant Complications: Meconium Physical Findings at Delivery: Within Normal Limits Respirations: Appears Normal Infant Care By: D Bellavance RN Transferred To: Remains with Mother SIGNATURES : I was personally available for consultation and serving as supervising physician for the MLP.
--- NOTE | 2018-12-08 11:06 | Delivery Summary ---
Del Sum A-C Datetime Report Generated by CPN: 12/08/2018 11:06 DELIVERY PERSONNEL DELIVERY PERSONNEL: [id number] Delivery Doctor:: Zulma Ordoñez CNM Labor and Delivery Nurse:: Loretta Kulkarni RNfamily living educator Nurse:: ELIAN Mack Student Observers:: C Reper T Aquiles Entrepreneurial Finance Professor/ENGINE ASSEMBLY SUPERVISOR: Ortega Kwan, MANAGER PRINT MATERNAL INFORMATION Delivery Anesthesia: None Medications After Delivery: Pitocin Drip 20 Units/1000ml NSS Maternal Complications: Precipitous Labor (<3hrs) LABOR SUMMARY EDC: 11/29/2018 00:00 No. Babies in Womb: 1 Attempted: No Labor Anesthesia: None LABOR INFORMATION Reason for Induction: Post Dates Onset of Labor: 12/08/2018 10:30 Complete Dilatation: 12/08/2018 10:32 Oxytocin: Induction Group B Beta Strep: negative MEMBRANES Membranes Rupture Method: Artificial Rupture of Membranes: 12/08/2018 08:20 Length of Rupture (hr): 2.22 Amniotic Fluid Color: Moderate Meconium Amniotic Fluid Amount: Moderate Amniotic Fluid Odor: Normal STAGES OF LABOR Stage 1 hr: 0 Stage 1 min: 2 Stage 2 hr: 0 Stage 2 min: 1 Stage 3 hr: 0 Stage 3 min: 11 Total Time in Labor hr: 0 Total Time in Labor min: 14 VAGINAL DELIVERY Episiotomy: None Laceration #1: None Laceration Extension #1: N/A Laceration Repair: Not Applicable Sponge Count Correct: Yes BABY A INFORMATION Delivery Date/Time: 12/08/2018 10:33 Method of Delivery: Vaginal Born in Route : No : N/A Forceps: N/A Vacuum Extraction: N/A Shoulder Dystocia : No PRESENTATION/POSITION BABY A Presentation: Cephalic Cephalic Presentation: N/A Vertex Position: Left Occipital Anterior Breech Presentation: N/A PLACENTA INFORMATION BABY A Placenta Delivery Time : 12/08/2018 10:44 Placenta Method of Delivery: Spontaneous Placenta Status: Delivered SCORES BABY A Heart Rate 1 min: >100 bpm Resp Effort 1 min: Good Cry Reflex Irritability 1 min: Cough or Sneeze or Pulls Away Muscle Tone 1 min: Active Motion Color 1 min: Completely [place] SCORE 1 MIN: 10 Heart Rate 5 min: >100 bpm Heart Rate 10 min: >100 bpm INFANT INFORMATION BABY A Gestational Age at Delivery: 41.2 Gestational Status: Late Term- 41- 41.6 Weeks Outcome : Liveborn Condition : Stable Sex: Male IDENTIFICATION BABY A Infant Verification Date/Time: 12/08/2018 10:57 ID Band Number: [id number] Mother's Name Verified: Yes Infant RN Verifying Infant: D Bellavance RN/R Cayla RN CORD INFORMATION BABY A No. Cord Vessels: 3 Nuchal Cord : Around Neck x1, Loose ASSESSMENT BABY A Infant Complications: Meconium Physical Findings at Delivery: Within Normal Limits Respirations: Appears Normal Infant Care By: D Bellavance RN Transferred To: Remains with Mother SIGNATURES : I was personally available for consultation and serving as supervising physician for the MLP.
[2018-12-08] MEDS ORDERED: PROMETHAZINE HCL 25 MG TABLET PO PRN (11:28)
[2018-12-08] MEDS ORDERED: MAGNESIUM HYDROXIDE SUSP 30 ML UDCUP PO PRN (11:28)
[2018-12-08] MEDS ORDERED: GLYCERIN/WITCH HAZEL LEAF 1 EACH MED..PAD TP PRN (11:28)
[2018-12-08] MEDS ORDERED: DIBUCAINE 1% OINTMENT 56 GM TP PRN (11:28)
[2018-12-08] MEDS ORDERED: ZOLPIDEM TARTRATE 5 MG TABLET PO PRN (11:28)
[2018-12-08] MEDS ORDERED: ACETAMINOPHEN WITH CODEINE #3 TABLET PO PRN ×2 (11:28)
[2018-12-08] MEDS ORDERED: ACETAMINOPHEN 650 MG SUPP.RECT PR PRN (11:28)
[2018-12-08] MEDS ORDERED: PROMETHAZINE HCL INJ 25 MG/1 ML VIAL IV PRN (11:28)
[2018-12-08] MEDS ORDERED: PSEUDOEPHEDRINE HCL 30 MG TABLET PO PRN (11:28)
[2018-12-08] MEDS ORDERED: NA PHOS,M-B/NA PHOS,DI-BA (ADULT) 133 ML ENEMA PR PRN (11:28)
[2018-12-08] MEDS ORDERED: DIPH/PERTUSS(ACELL)/TETANUS VAC/PF 0.5 ML SYR (>=10YO) IM PRN (11:28)
[2018-12-08] MEDS ORDERED: BENZOCAINE/MENTHOL AEROSOL SPRAY 56 ML TOP PRN (11:28)
[2018-12-08] MEDS ORDERED: PROMETHAZINE HCL 25 MG SUPP.RECT PR PRN (11:28)
[2018-12-08] MEDS ORDERED: MEASLES,MUMPS&RUBELLA VACC/PF 0.5 ML VIAL SUBCUT PRN (11:28)
[2018-12-08] MEDS ORDERED: IBUPROFEN 800 MG TABLET ONE (12:30)
[2018-12-08] MEDS ORDERED: IBUPROFEN 800 MG TABLET PO SCH (14:00)
[2018-12-08] MEDS: DIPHENHYDRAMINE HCL 25 MG CAPSULE PO PRN ×2 (16:28→22:31)
[2018-12-08] MEDS: FERROUS SULFATE 325 MG TABLET PO SCH (17:37)
[2018-12-08] MEDS: DOCUSATE SODIUM 100 MG CAPSULE PO SCH (17:38)
[2018-12-08] MEDS: IBUPROFEN 800 MG TABLET PO SCH (20:32)
[2018-12-08] MEDS: FAMOTIDINE 20 MG TABLET PO SCH (22:31)
[2018-12-09] MEDS: IBUPROFEN 800 MG TABLET PO SCH ×3 (03:39→19:52)
[2018-12-09 06:49] LABS: ABSOLUTE EOSINOPHILS # (AUTO) 0.1 10^3/uL (0.0-0.6); ABSOLUTE LYMPHOCYTES (AUTO) 2.4 10^3/uL (0.5-4.7); ABSOLUTE MONOCYTES (AUTO) 0.8 10^3/uL (0.1-1.4); ABSOLUTE NEUT (AUTO) 8.1 10^3/uL (1.7-8.2); BASOPHILS % (AUTO) 0.3 % (0-2); EOSINOPHILS % (AUTO) 0.9 % (0-6); HEMATOCRIT 29.4 % (36.0-47.0); HEMOGLOBIN 9.8 g/dL (12.0-15.5); LYMPHOCYTES % (AUTO) 20.8 % (13-45); MEAN CORPUSCULAR HEMOGLOBIN 25.4 pg (27.0-33.4); MEAN CORPUSCULAR HGB CONC 33.4 g/dL (32.0-36.0); MEAN CORPUSCULAR VOLUME 76 fl (80-97); MONOCYTES % (AUTO) 7.1 % (3-13); PLATELET COUNT 249 10^3/uL (150-450); RED BLOOD COUNT 3.86 10^6/uL (3.72-5.28); RED CELL DISTRIBUTION WIDTH 14.3 % (11.5-14.0); SEGMENTED NEUTROPHILS % (AUTO) 70.9 % (42-78); TOTAL CELLS COUNTED % (AUTO) 100 %; WHITE BLOOD COUNT 11.5 10^3/uL (4.0-10.5)
--- NOTE | 2018-12-09 11:04 | PDOC PROGRESS REPORT ---
Subjective-OB Progress Note for:: 12/09/18 Subjective: reports bleeding slowing, pain controlled with current meds. denies needs. Physical Exam (OB) Vital Signs: Temp Pulse Resp BP Pulse Ox 98.0 F 90 16 125/78 100 12/09/18 08:01 12/09/18 08:01 12/09/18 08:01 12/09/18 08:01 12/09/18 08:01 Intake & Output 12/08/18 12/09/18 12/10/18 06:59 06:59 06:59 Intake Total 300 Balance 300 Weight 81.5 kg - Abdomen Description: Soft, Round Hernia Present: No Fundal Description: Firm Fundal Height: u/u - u/2 - Abdominal Distension: No distension Tenderness: Nontender - Extremities Lower extremities: Arvin's sign - neg Calf: Normal, Nontender Objective-Diagnostic Laboratory: 12/09/18 06:20 12/09/18 06:20 WBC 11.5 H RBC 3.86 Hgb 9.8 L Hct 29.4 L MCV 76 L MCH 25.4 L MCHC 33.4 RDW 14.3 H Plt Count 249 Seg Neutrophils % 70.9 Lymphocytes % 20.8 Monocytes % 7.1 Eosinophils % 0.9 Basophils % 0.3 Absolute Neutrophils 8.1 Absolute Lymphocytes 2.4 Absolute Monocytes 0.8 Absolute Eosinophils 0.1 Absolute Basophils 0.0 Assessment and Plan(PN) - Assessment and Plan (1) Encounter for planned induction of labor Is this a current diagnosis for this admission?: Yes (2) Normal vaginal delivery Is this a current diagnosis for this admission?: Yes - Time Spent with Patient Time with patient: Less than 15 minutes Medications reviewed and adjusted accordingly: Yes - Disposition Anticipated Discharge: Home Within: within 24 hours
[2018-12-09] MEDS: PRENATAL VITAMIN W DHA CAPSULE PO SCH (11:16)
[2018-12-09] MEDS: DOCUSATE SODIUM 100 MG CAPSULE PO SCH ×2 (11:16→18:43)
[2018-12-09] MEDS: FAMOTIDINE 20 MG TABLET PO SCH ×2 (11:16→22:00)
[2018-12-09] MEDS: SENNOSIDES/DOCUSATE 8.6-50 MG 1 EACH TABLET PO SCH (11:17)
[2018-12-09] MEDS: FERROUS SULFATE 325 MG TABLET PO SCH ×2 (11:17→18:43)
[2018-12-09 20:55] VITALS: BP 131/84
[2018-12-10] MEDS: IBUPROFEN 800 MG TABLET PO SCH ×2 (04:15→14:57)
--- NOTE | 2018-12-10 09:51 | PDOC DISCHARGE SUMMARY ---
Final Diagnosis Discharge Date: 12/10/18 - Final Diagnosis (1) Encounter for planned induction of labor Is this a current diagnosis for this admission?: Yes (2) Normal vaginal delivery Is this a current diagnosis for this admission?: Yes Discharge Data - Discharge Medication Prescriptions: Ibuprofen [Motrin 800 mg Tablet] 800 mg PO Q8HP PRN #60 tablet PRN Reason: Home Medications: No122/Iron/Folic Acid [ Multi Tablet] 1 each PO DAILY 12/01/18 Ranitidine HCl [Zantac 150 mg Tablet] 150 mg PO DAILY 12/01/18 Ibuprofen [Motrin 800 mg Tablet] 800 mg PO Q8HP PRN #60 tablet 12/10/18 Reason(s) for Admission: Induction of Labor Procedures: NST Intrapartum Procedure(s): Spontaneous Vaginal Delivery - Diagnosis Test Laboratory: Temp Pulse Resp BP Pulse Ox 97.7 F 91 18 131/84 H 95 12/09/18 19:28 12/09/18 19:28 12/09/18 19:28 12/09/18 19:28 12/09/18 19:28 12/08/18 12/08/18 12/09/18 06:40 07:23 06:20 RBC 4.02 3.86 Hgb 10.3 L 9.8 L Hct 30.5 L 29.4 L Urine Opiates Screen NEGATIVE - Discharge information/Instructions Discharge Activity: Balance Activity w/Rest, Pelvic Rest Discharge Diet: Regular Disposition: HOME, SELF-CARE Follow up with: [facility] in: 4, Weeks
[2018-12-10] MEDS: SENNOSIDES/DOCUSATE 8.6-50 MG 1 EACH TABLET PO SCH (10:44)
[2018-12-10] MEDS: DOCUSATE SODIUM 100 MG CAPSULE PO SCH (10:44)
[2018-12-10] MEDS: PRENATAL VITAMIN W DHA CAPSULE PO SCH (10:44)
[2018-12-10] MEDS: FAMOTIDINE 20 MG TABLET PO SCH (10:44)
[2018-12-10] MEDS: FERROUS SULFATE 325 MG TABLET PO SCH (10:44)
== END 2018-12-10 15:03 | disposition home or self-care (01) | DRG 807 ==
LOC: LR 06:33 → 2S 15:23
PROVIDERS: ADMIT Obstetrics & Gynecology; ATTEND Obstetrics & Gynecology
PROC: 10E0XZZ Delivery of Products of Conception, External Approach (ICD-10-PCS; principal; 2018-12-08)
PROC: 3E033VJ Introduction of Other Hormone into Peripheral Vein, Percutaneous Approach (ICD-10-PCS; 2018-12-08)
PROC: 10907ZC Drainage of Amniotic Fluid, Therapeutic from Products of Conception, Via Natural or Artificial Opening (ICD-10-PCS; 2018-12-08)
PROC: 4A1HX4Z Monitoring of Products of Conception, Cardiac Electrical Activity, External Approach (ICD-10-PCS; 2018-12-08)
DX: O48.0 Post-term pregnancy (principal); Z37.0 Single live birth; O62.3 Precipitate labor; Z3A.41 41 weeks gestation of pregnancy; O77.0 Labor and delivery complicated by meconium in amniotic fluid; O69.81X0 Labor and delivery complicated by cord around neck, without compression, not applicable or unspecified
CPT/HCPCS: 36415; 80307; 81005; 85025; 86592; 86850; 86900; 86901; 86920; 90715; J2370; J2590; J3010; J3490

== ENCOUNTER 2020-09-15 08:58 | Emergency (ER) | payer MEDICAID ==
[2020-09-15 09:04] VITALS: BP 122/72
[2020-09-15 10:23] LABS: ABSOLUTE EOSINOPHILS # (AUTO) 0.1 10^3/uL (0.0-0.6); ABSOLUTE MONOCYTES (AUTO) 0.5 10^3/uL (0.1-1.4); ABSOLUTE NEUT (AUTO) 5.4 10^3/uL (1.7-8.2); BASOPHILS % (AUTO) 0.4 % (0-2); EOSINOPHILS % (AUTO) 1.6 % (0-6); LYMPHOCYTES % (AUTO) 24.6 % (13-45); MEAN CORPUSCULAR HEMOGLOBIN 28.2 pg (27.0-33.4); MEAN CORPUSCULAR VOLUME 83 fl (80-97); MONOCYTES % (AUTO) 5.6 % (3-13); PLATELET COUNT 302 10^3/uL (150-450); RED BLOOD COUNT 4.94 10^6/uL (3.72-5.28); RED CELL DISTRIBUTION WIDTH 12.9 % (11.5-14.0); SEGMENTED NEUTROPHILS % (AUTO) 67.8 % (42-78); TOTAL CELLS COUNTED % (AUTO) 100 %
[2020-09-15 10:36] LABS: BACTERIA (WET MOUNT) 3+ BACTERIA SEEN; EPITHELIALS (WET MOUNT) 3+ EPITHELIALS SEEN; T.VAGINALIS (WET MOUNT) NO TRICHOMONAS SEEN; WBCS (WET MOUNT) 1+ WBCS SEEN; YEAST (WET MOUNT) NO YEAST SEEN
[2020-09-15 10:37] LABS: APPEARANCE,URINE CLEAR; BILIRUBIN,URINE NEGATIVE (NEGATIVE); COLOR,URINE STRAW; GLUCOSE, URINE NEGATIVE (NEGATIVE); KETONES,URINE NEGATIVE (NEGATIVE); PROTEIN,URINE NEGATIVE (NEGATIVE); URINE SPECIFIC GRAVITY 1.006; UROBILINOGEN,URINE NEGATIVE mg/dL (<2.0)
[2020-09-15 10:41] LABS: ALBUMIN 4.2 g/dL (3.5-5.0); ALKALINE PHOSPHATASE 78 U/L (38-126); ANION GAP 10 (5-19); ASPARTATE AMINO TRANSFERASE 19 U/L (14-36); BILIRUBIN,DIRECT 0.2 mg/dL (0.0-0.4); BILIRUBIN,TOTAL 0.6 mg/dL (0.2-1.3); BLOOD UREA NITROGEN 9 mg/dL (7-20); CALCIUM 9.4 mg/dL (8.4-10.2); CARBON DIOXIDE 23 mmol/L (22-30); CHLORIDE 104 mmol/L (98-107); GLUCOSE 96 mg/dL (75-110); POTASSIUM 4.3 mmol/L (3.6-5.0)
--- NOTE | 2020-09-15 12:19 | RADIOLOGY REPORT (SQ) ---
EXAM DESCRIPTION: U/S AF5OTMH TRNABD 1GES W/ODOP IMAGES COMPLETED DATE/TIME: 09/15/2020 10:49 am REASON FOR STUDY: spotting COMPARISON: None. TECHNIQUE: Transabdominal static and realtime grayscale images acquired of the pelvis. Additional se lected spectral and color Doppler images recorded. All images stored on PACs. bHCG: Not applicable. CLINICAL DATES: LMP 06/01/2020 15 weeks 1 day LIMITATIONS: None. FINDINGS: FETUS: Single Living intrauterine . ULTRASOUND EGA: 12 weeks 0 days by crown-rump length. ULTRASOUND DONY: 03/30/2021 EFW: Not applicable less than 20 weeks. CRL: 5.4 cm. FHR: No heart motion is present. SURVEY: Too early to assess. AMNIOTIC FLUID: Adequate amount. PLACENTA: Not yet developed due to early gestation. SUBCHORIONIC BLEED: No SIZE OF BLEED: Not applicable. UTERUS: No masses. No anomalies. CERVICAL LENGTH: 4.2 cm. Closed. RIGHT ADNEXA: Ovary not seen. No adnexal free fluid. No adnexal masses. LEFT ADNEXA: Ovary not seen. No adnexal free fluid. No adnexal masses. FREE FLUID: None. OTHER: No other significant finding. IMPRESSION: Apparent demise at 12 weeks 0 days TECHNICAL DOCUMENTATION: JOB ID: [id number] 2010 A [employer]- All Rights Reserved rev Reading location - IP/workstation name: [email or web address]
--- NOTE | 2020-09-15 14:08 | ER Document Report ---
ED GI/ - General Chief Complaint: Vaginal Bleeding Stated Complaint: VAGINAL BLEEDING/ Time Seen by Provider: 09/15/20 09:35 Notes: 35-year-old woman presents to the emergency department with a history of 8 para 7 000, apparently has developed a brownish vaginal discharge over the past day. She states that it is gotten darker and has been concerned. She states that the discharge began after having intercourse with her significant other. She denies pain, bleeding, cramping or fever. She has a 14-week intrauterine and is concerned about the discharge and how it may affect the . TRAVEL OUTSIDE OF THE [place] IN LAST 30 DAYS: No - Related Data Allergies/Adverse Reactions: No Known Allergies Allergy (Verified 09/15/20 09:40) Past Medical History - Social History Smoking Status: Never Smoker Family History: Reviewed & Not Pertinent Renal/ Medical History: Denies: Hx Peritoneal Dialysis Review of Systems - Review of Systems Notes: Constitutional: Negative for fever. HENT: Negative for sore throat. Eyes: Negative for visual changes. Cardiovascular: Negative for chest pain. Respiratory: Negative for shortness of breath. Gastrointestinal: Negative for abdominal pain, vomiting or diarrhea. Genitourinary: See HPI Musculoskeletal: Negative for back pain. Skin: Negative for rash. Neurological: Negative for headaches, weakness or numbness. 10 point ROS negative except as marked above and in HPI. Physical Exam - Vital signs Vitals: Temp Pulse Resp BP Pulse Ox 98 F 93 18 122/72 100 09/15/20 09:03 09/15/20 09:03 09/15/20 09:03 09/15/20 09:03 09/15/20 09:03 - Notes Notes: PHYSICAL EXAMINATION: Physical Exam: General: Well-nourished well-developed in no acute distress HEENT: NC/AT, pupils equal round and reactive to light, MM moist,nares clear, oropharynx clear, airway patent Neck: supple, no adenopathy, no masses. Good range of motion Lungs: clear, no wheezing, no rales no rhonchi CVS: Regular rate and rhythm no murmur gallop or rub Abdomen: Soft, active, nontender, no masses, no hepatosplenomegaly : No tenderness in the lower pelvis. Ext: No edema, clubbing or cyanosis. Neuro: Alert and responsive, moving all 4 extremities on command, cranial nerves intact, no focal findings Skin: Intact no open lesions, no rash Course - Re-evaluation Re-evalutation: 09/15/20 14:01 Patient had labs performed along with urinalysis and ultrasound. Ultrasound reveals a 12-week intrauterine with demise. 09/15/20 14:14 Dr. Moon, [facility] on-call was contacted, she will see the patient in the emergency department to discuss options. - Vital Signs Vital signs: Temp Pulse Resp BP Pulse Ox 98 F 93 18 122/72 100 09/15/20 09:03 09/15/20 09:03 09/15/20 09:03 09/15/20 09:03 09/15/20 09:03 - Laboratory Results Result Diagrams: 09/15/20 09:39 09/15/20 09:39 Laboratory Results Interpreted: 09/15/20 09/15/20 09:39 09:39 Sodium 136.7 L Urine Blood MODERATE H 09/15/20 14:02 I have reviewed laboratory data and used this information for the treatment decisions regarding the patient. Critical Laboratory Results Reviewed: No Critical Results - Radiology Results Radiology Results Interpreted: 09/15/20 14:02 Obstetrics Ultrasound 09/15/20 10:06 IMPRESSION: Apparent demise at 12 weeks 0 days Critical Radiology Results Reviewed: Yes Attending or Supervising Physician who Reviewed Radiology: ODIN CERRATO Discharge - Discharge Clinical Impression: demise Condition: Good Disposition: HOME, SELF-CARE Additional Instructions: You were seen in the emergency department today with concerns regarding the discharge. The ultrasound which was performed in emergency department today shows 12-week with demise. You will follow up with the [facility] and a plan for the management be discussed. If you are having complications or other difficulties you may return to the emergency department for further evaluation and treatment HOME CARE INSTRUCTIONS & INFORMATION: Thank you for choosing us for your medical needs. We hope you're satisfied with the care you received. After you leave, you must properly care for your problem and, at the same time, observe its progress. Any condition can change. Some illnesses can change rapidly over hours or days. If your condition worsens, return to the Emergency Department or see your physician promptly. ABOUT YOUR X-RAYS AND EKG'S: If you had an EKG or X-rays taken, they have been read by the Emergency Physician. The X-rays and EKG's will also be read by a Radiologist or Agronomy Manager within 24 hours. If discrepancies are noted, you will be notified by telephone. Please be certain the ED has a correct telephone number & address where you can be reached. Also, realize that some fractures or abnormalities do not show up on initial X-rays. If your symptoms continue, see your physician. ABOUT YOUR LABORATORY TEST: If you had laboratory tests, the results have been reviewed by the Emergency Physician. Some test results (for example cultures) may not be available for several days. You will be contacted if any test result shows you need additional treatment. Please be certain the ED has a correct telephone number and address where you can be reached. ABOUT YOUR MEDICATIONS: You will receive instructions on how to take your medicine on the prescription label you receive. Additional information may be provided by the Pharmacy. If you have questions afterwards, call the ED for clarification or further instructions. Some prescribed medications may cause drowsiness. Do not perform tasks such as driving a car or operating machinery without consulting your Pharmacist. If you feel you need a refill of pain medication, your condition will need re-evaluation. Please do not call for a refill of any medication. ABOUT YOUR SIGNATURE: Signature of this document acknowledges to followin. Understanding that you received emergency treatment and that you may be released before al medical problems are known or treated. Please be certain the ED has a correct phone number & address where you can be reached. 2. Acknowledgement that you will arrange for follow-up care as recommended. 3. Authorization for the Emergency Physician to provide information to your follow-up Physician in order to maximize your care. AT ANY TIME, IF YOUR SYMPTOMS CHANGE SIGNIFICANTLY OR WORSEN OR YOU DEVELOP NEW SYMPTOMS, RETURN TO THE EMERGENCY DEPARTMENT IMMEDIATELY FOR RE-EVALUATION. OUR GOAL IS TO PROVIDE EXCELLENT MEDICAL CARE! WE HOPE THAT WE HAVE MET YOUR EXPECTATIONS DURING YOUR EMERGENCY DEPARTMENT VISIT AND THAT YOU FEEL YOU HAVE RECEIVED EXCELLENT CARE!
--- NOTE | 2020-09-15 15:11 | PDOC CONSULTATION ---
Consultation Consult Date: 09/15/20 Attending physician:: ODIN CERRATO Provider Consulted: CHRISTEN ROWAN Consult reason:: first trimester demise History of Present Illness Admission Date/PCP: 09/15/20 Patient complains of: vaginal bleeding in History of Present Illness: IRIS JOHNSON is a 35 year old female at approximately 15 weeks EGA who presented to ED for vaginal bleeding in . Reports new onset spotting today. Was bright red but is now brown discharge. She is seen at the [facility]. She has had 7 uncomplicated SVDs. She is healthy. Denies PMH or PSH. NO tobacco use or alcohol use Social History Smoking Status: Never Smoker Family History Family History: Reviewed & Not Pertinent Parental Family History Reviewed: Yes Children Family History Reviewed: Yes Sibling(s) Family History Reviewed.: Yes Medication/Allergy Home Medications: No122/Iron/Folic Acid [ Multi Tablet] 1 each PO DAILY 12/01/18 Ranitidine HCl [Zantac 150 mg Tablet] 150 mg PO DAILY 12/01/18 Ibuprofen [Motrin 800 mg Tablet] 800 mg PO Q8HP PRN #60 tablet 12/10/18 Allergies/Adverse Reactions: No Known Allergies Allergy (Verified 09/15/20 09:40) Review of Systems Constitutional: ABSENT: chills, fever(s), headache(s), weight gain, weight loss Cardiovascular: ABSENT: chest pain, dyspnea on exertion, edema, orthropnea, palpitations Respiratory: ABSENT: cough, hemoptysis Gastrointestinal: ABSENT: abdominal pain, constipation, diarrhea, hematemesis, hematochezia, nausea, vomiting Integumentary: ABSENT: rash, wounds Neurological: ABSENT: abnormal gait, abnormal speech, confusion, dizziness, focal weakness, syncope Psychiatric: ABSENT: anxiety, depression, homidical ideation, suicidal ideation Hematologic/Lymphatic: ABSENT: easy bleeding, easy bruising Physical Exam - Physical Exam Vital Signs: Temp Pulse Resp BP Pulse Ox 98 F 93 18 122/72 100 09/15/20 09:03 09/15/20 09:03 09/15/20 09:03 09/15/20 09:03 09/15/20 09:03 Intake & Output 09/14/20 09/15/20 09/16/20 06:59 06:59 06:59 Weight 67.1 kg General appearance: PRESENT: no acute distress, cooperative Respiratory exam: PRESENT: clear to auscultation tana Cardiovascular exam: PRESENT: RRR, +S1, +S2 GI/Abdominal exam: PRESENT: soft, other - Non-tender Extremities exam: PRESENT: full ROM. ABSENT: calf tenderness, clubbing, pedal edema Psychiatric exam: PRESENT: appropriate affect, normal mood. ABSENT: homicidal ideation, suicidal ideation Result Laboratory Results: 09/15/20 09:39 09/15/20 09:39 09/15/20 09/15/20 09/15/20 09:39 09:39 09:39 WBC 8.0 RBC 4.94 Hgb 14.0 Hct 41.0 MCV 83 MCH 28.2 MCHC 34.0 RDW 12.9 Plt Count 302 Seg Neutrophils % 67.8 Sodium 136.7 L Potassium 4.3 Chloride 104 Carbon Dioxide 23 Anion Gap 10 BUN 9 Creatinine 0.56 Est GFR ( Amer) > 60 Glucose 96 Calcium 9.4 Total Bilirubin 0.6 AST 19 Alkaline Phosphatase 78 Total Protein 8.0 Albumin 4.2 Urine Color STRAW Urine Appearance CLEAR Urine pH 7.0 Ur Specific [place] 1.006 Urine Protein NEGATIVE Urine Glucose (UA) NEGATIVE Urine Ketones NEGATIVE Urine Blood MODERATE H Urine RBC (Auto) 4 Impressions: Obstetrics Ultrasound 09/15/20 10:06 IMPRESSION: Apparent demise at 12 weeks 0 days Assessment & Plan - Diagnosis (1) demise Is this a current diagnosis for this admission?: Yes - Time Critical Time spent with patient: Less than 15 minutes Anticipated Discharge Disposition: Home, Self Care Anticipated Discharge Timeframe: within 24 hours - Plan Summary Plan Summary: 35 yo at 15 weeks By LMP with vaginal spotting. US today showed no FHT: demise -VSS -bleeding spotting only -D/c miscarriage in first trimester and expected course. Discussed options of expectant mgt, misoprostol or suction D&C. She can discuss with her and let her OB provider know her decision -RH pos -Precautions reviewed. -f/u outpatient or return PRN
== END 2020-09-15 15:44 | disposition home or self-care (01) ==
LOC: ER 08:58
DX: O03.9 Complete or unspecified spontaneous abortion without complication (principal); Z79.899 Other long term (current) drug therapy
CPT/HCPCS: 36415; 76801; 80053; 81001; 85025; 87210; 99284

== ENCOUNTER 2020-09-16 00:17 | Observation (INO) | payer MEDICAID ==
[2020-09-16] MEDS ORDERED: MORPHINE SULFATE 10 MG/ML INJ IV ONE (01:17)
[2020-09-16] MEDS ORDERED: NORMAL SALINE 1000 ML 1,000 ML IV ONE (01:17)
--- NOTE | 2020-09-16 01:17 | ER Document Report ---
ED GI/ - General Chief Complaint: Vag Bleeding, +preg <12wks Stated Complaint: VAGINAL BLEEDING Time Seen by Provider: 09/16/20 01:05 Notes: Patient is a 35-year-old female 8 para 7 who presents the emergency department with vaginal bleeding. Patient was evaluated in the emergency department earlier today and was diagnosed with demise. Patient states that around 1130 tonight she felt her water break and ended up passing the fetus. Patient continues to bleed. TRAVEL OUTSIDE OF THE [place] IN LAST 30 DAYS: No - Related Data Allergies/Adverse Reactions: No Known Allergies Allergy (Verified 09/15/20 09:40) Home Medications: vitamins Past Medical History - Social History Smoking Status: Never Smoker Drug Abuse: None Family History: Reviewed & Not Pertinent Renal/ Medical History: Denies: Hx Peritoneal Dialysis Past Surgical History: Reports: Hx Cholecystectomy, Hx Genitourinary Surgery - 2009 [facility] Review of Systems - Review of Systems Notes: REVIEW OF SYSTEMS: CONSTITUTIONAL : Denies recent illness. Denies recent unintentional weight loss. Denies fever, chills, or sweats. EENT: Denies eye, ear, throat, or mouth pain, discharge, or symptoms. Denies nasal or sinus congestion. CARDIOVASCULAR: Denies chest pain. RESPIRATORY: Denies shortness of breath, cough, congestion, difficulty breathing, or wheezing. GASTROINTESTINAL: Denies nausea, vomiting, and diarrhea. Denies constipation. See HPI. GENITOURINARY: Denies difficulty urinating, burning, blood in urine, urgency or frequency. FEMALE GENITOURINARY: See HPI. MUSCULOSKELETAL: Denies neck and back pain. Denies joint pain or swelling. SKIN: Denies rash, itchiness, or lesions HEMATOLOGIC : Denies easy bruising or bleeding. LYMPHATIC: Denies swollen, painful, enlarged glands. NEUROLOGICAL: Denies no numbness or tingling denies weakness. Denies headache. Denies altered mental status. Denies alteration in speech. PSYCHIATRIC: Denies stress, anxiety, alteration in sleep patterns, or depressi on. All other systems reviewed and negative. Physical Exam - Vital signs Vitals: Temp Pulse Resp BP Pulse Ox 97.3 F 120 H 18 131/71 H 100 09/16/20 00:33 09/16/20 00:33 09/16/20 00:33 09/16/20 00:33 09/16/20 00:33 - Notes Notes: PHYSICAL EXAMINATION: GENERAL: Appears well, healthy, well-nourished, no acute distress. HEAD: Normocephalic, atraumatic. EYES: PERRL, conjunctiva normal, all extraocular movements intact, sclera nonicteric ENT: Moist mucous membranes. NECK: Supple, no noticeable swelling, redness, rash. Normal range of motion. LUNGS: Equal breath sounds bilaterally and clear to auscultation. No wheezes rales or rhonchi. CARDIOVASCULAR: S1-S2, regular rate, regular rhythm. Radial pulses 2+, normal. ABDOMEN: Normoactive bowel sounds. Soft, nontender, no guarding, no rebound tenderness, and no masses palpated. EXTREMITIES: Normal strength and range of motion, no pitting or edema. No cyanosis. NEUROLOGICAL: Moves all extremities upon command. Strength 5/5 in all extremities. PSYCH: Normal mood, normal affect. SKIN: Warm, dry. No rash, lesions, ulcerations noted. Normal skin turgor. TAX ASSISTANT: Patient soaking through pads and blood noted all over Chux pad. Course - Re-evaluation Re-evalutation: 09/16/20 01:[address] Moon, the COMPUTER SYSTEMS ARCHITECT on-call. Patient will be admitted to the unit for observation. - Vital Signs Vital signs: Temp Pulse Resp BP Pulse Ox 97.3 F 120 H 18 131/71 H 100 09/16/20 00:33 09/16/20 00:33 09/16/20 00:33 09/16/20 00:33 09/16/20 00:33 - Laboratory Results Result Diagrams: 09/16/20 01:10 09/16/20 01:10 Laboratory Results Interpreted: 09/16/20 01:10 WBC 13.9 H Absolute Neuts (auto) 10.9 H Seg Neutrophils % 78.4 H Critical Laboratory Results Reviewed: No Critical Results - Radiology Results Critical Radiology Results Reviewed: No Critical Results Discharge - Discharge Clinical Impression: demise, Vaginal bleeding Condition: Stable Disposition: ADMITTED OBSERVATION Admitting Provider: [facility] Unit Admitted: Post
[2020-09-16 01:30] LABS: ABSOLUTE EOSINOPHILS # (AUTO) 0.2 10^3/uL (0.0-0.6); ABSOLUTE MONOCYTES (AUTO) 0.8 10^3/uL (0.1-1.4); ABSOLUTE NEUT (AUTO) 10.9 10^3/uL (1.7-8.2); BASOPHILS % (AUTO) 0.2 % (0-2); EOSINOPHILS % (AUTO) 1.7 % (0-6); HEMATOCRIT 37.8 % (36.0-47.0); HEMOGLOBIN 12.9 g/dL (12.0-15.5); MEAN CORPUSCULAR HEMOGLOBIN 28.4 pg (27.0-33.4); MEAN CORPUSCULAR HGB CONC 34.2 g/dL (32.0-36.0); MEAN CORPUSCULAR VOLUME 83 fl (80-97); MONOCYTES % (AUTO) 5.7 % (3-13); PLATELET COUNT 319 10^3/uL (150-450); RED BLOOD COUNT 4.56 10^6/uL (3.72-5.28); RED CELL DISTRIBUTION WIDTH 12.8 % (11.5-14.0); SEGMENTED NEUTROPHILS % (AUTO) 78.4 % (42-78); TOTAL CELLS COUNTED % (AUTO) 100 %; WHITE BLOOD COUNT 13.9 10^3/uL (4.0-10.5)
[2020-09-16] MEDS ORDERED: RINGERS SOLUTION,LACTATED 1,000 ML IV PRN ×2 (01:36→01:40)
[2020-09-16] MEDS ORDERED: KETOROLAC TROMETHAMINE INJ/PF 30 MG/1 ML SDV IV PRN ×2 (01:36→01:40)
[2020-09-16] MEDS ORDERED: OXYCODONE-ACETAMINOPHEN 5-325 MG TABLET PO PRN ×4 (01:36→01:40)
[2020-09-16] MEDS ORDERED: IBUPROFEN 800 MG TABLET PO PRN (01:40)
[2020-09-16 01:47] LABS: ALBUMIN 3.9 g/dL (3.5-5.0); ALKALINE PHOSPHATASE 78 U/L (38-126); ANION GAP 11 (5-19); ASPARTATE AMINO TRANSFERASE 23 U/L (14-36); BILIRUBIN,TOTAL 0.6 mg/dL (0.2-1.3); BLOOD UREA NITROGEN 12 mg/dL (7-20); CALCIUM 9.2 mg/dL (8.4-10.2); CARBON DIOXIDE 19 mmol/L (22-30); CHLORIDE 102 mmol/L (98-107); GLUCOSE 134 mg/dL (75-110); POTASSIUM 3.7 mmol/L (3.6-5.0); TOTAL PROTEIN 7.8 g/dL (6.3-8.2)
--- NOTE | 2020-09-16 01:54 | PDOC H&P ---
History of Present Illness Admission Date/PCP: 09/16/20 History of Present Illness: IRIS JOHNSON is a 35 year old female who presented miscarriaging at approximately 12 weeks with heavy vaginal bleeding. She had been seen earlier tonight with new diagnosis of miscarriage. At that time she had spotting and was found on US to have demise at 12 weeks. By LMP she was 15 weeks but appeared baby stopped growing at 12 weeks. She was given options for manangement of miscarriage and sent home to consider these with her . She returns now as heavy vaginal bleeding started and she passed the fetus at home. She continues to have heavy bleeding and cramping pain. Past Medical History LMP: 05/29/20 Past Surgical History Past Surgical History: Reports: Cholecystectomy Social History Smoking Status: Never Smoker Family History Family History: Reviewed & Not Pertinent Parental Family History Reviewed: Yes Children Family History Reviewed: Yes Sibling(s) Family History Reviewed.: Yes Medication/Allergy Home Medications: No122/Iron/Folic Acid [ Multi Tablet] 1 each PO DAILY 12/01/18 Ranitidine HCl [Zantac 150 mg Tablet] 150 mg PO DAILY 12/01/18 Ibuprofen [Motrin 800 mg Tablet] 800 mg PO Q8HP PRN #60 tablet 12/10/18 Allergies/Adverse Reactions: No Known Allergies Allergy (Verified 09/15/20 09:40) Physical Exam - Physical Exam Vital Signs: Temp Pulse Resp BP Pulse Ox 97.3 F 120 H 18 131/71 H 100 09/16/20 00:33 09/16/20 00:33 09/16/20 00:33 09/16/20 00:33 09/16/20 00:33 Intake & Output 09/14/20 09/15/20 09/16/20 06:59 06:59 06:59 Weight 71.2 kg General appearance: PRESENT: no acute distress, cooperative Respiratory exam: PRESENT: clear to auscultation tana Cardiovascular exam: PRESENT: RRR, +S1, +S2 GI/Abdominal exam: PRESENT: soft, tenderness Neurological exam: PRESENT: alert, awake, oriented to person, oriented to place, oriented to time, oriented to situation, CN II-XII grossly intact. ABSENT: m otor sensory deficit Psychiatric exam: PRESENT: appropriate affect, normal mood. ABSENT: homicidal ideation, suicidal ideation Skin exam: PRESENT: dry, intact, warm. ABSENT: cyanosis, rash Result Laboratory Results: 09/16/20 01:10 09/16/20 09/16/20 01:10 01:10 WBC 13.9 H RBC 4.56 Hgb 12.9 Hct 37.8 MCV 83 MCH 28.4 MCHC 34.2 RDW 12.8 Plt Count 319 Seg Neutrophils % 78.4 H Blood Type Cancelled Antibody Screen Cancelled Assessment & Plan - Diagnosis (1) Incomplete miscarriage Is this a current diagnosis for this admission?: Yes (2) Vaginal bleeding Is this a current diagnosis for this admission?: Yes - Time Anticipated Discharge Disposition: Home, Self Care Anticipated Discharge Timeframe: within 24 hours - Plan Summary Plan Summary: 35 yo iwth incomplete miscarriage and heavy vaginal bleeding -Admit to 2nd floor: non-LDR unit -VSS presently -UP at paddy -NPO, ice chips -RH positive -WIll give cytotec to assist in passing remaining tissue -CBC in am
[2020-09-16] MEDS ORDERED: MORPHINE SULFATE 10 MG/ML INJ IV PRN (01:56)
[2020-09-16] MEDS ORDERED: MISOPROSTOL 0.2 MG TABLET PO SCH (02:00)
[2020-09-16 05:08] LABS: ABSOLUTE LYMPHOCYTES (AUTO) 1.3 10^3/uL (0.5-4.7); ABSOLUTE MONOCYTES (AUTO) 0.7 10^3/uL (0.1-1.4); ABSOLUTE NEUT (AUTO) 14.9 10^3/uL (1.7-8.2); BASOPHILS % (AUTO) 0.1 % (0-2); EOSINOPHILS % (AUTO) 0.2 % (0-6); HEMATOCRIT 31.9 % (36.0-47.0); LYMPHOCYTES % (AUTO) 7.8 % (13-45); MEAN CORPUSCULAR HEMOGLOBIN 28.4 pg (27.0-33.4); MEAN CORPUSCULAR HGB CONC 34.4 g/dL (32.0-36.0); MEAN CORPUSCULAR VOLUME 83 fl (80-97); MONOCYTES % (AUTO) 3.9 % (3-13); PLATELET COUNT 265 10^3/uL (150-450); RED BLOOD COUNT 3.87 10^6/uL (3.72-5.28); RED CELL DISTRIBUTION WIDTH 12.8 % (11.5-14.0); TOTAL CELLS COUNTED % (AUTO) 100 %; WHITE BLOOD COUNT 16.9 10^3/uL (4.0-10.5)
[2020-09-16 06:43] VITALS: BP 107/66
--- NOTE | 2020-09-22 13:16 | PDOC DISCHARGE SUMMARY ---
Impression - Admit/DC Date/PCP Admission Date/Primary Care Provider: 09/16/20 01:48 Discharge Date: 09/17/20 - Discharge Diagnosis (1) Incomplete miscarriage Is this a current diagnosis for this admission?: Yes (2) Vaginal bleeding Is this a current diagnosis for this admission?: Yes - Additional Information Resuscitation Status: Full Code Discharge Diet: As Tolerated, Regular Discharge Activity: Activity As Tolerated, Pelvic Rest, No tub bath, Walk Frequently Referrals: [facility] [Provider Group] (Please call A to schedule a 2 week follow up appointment.) Prescriptions: Ibuprofen [Ibu] 800 mg PO Q8 10 Days #30 tablet Cephalexin Monohydrate [Keflex 500 mg Capsule] 500 mg PO QID #20 capsule Home Medications: No122/Iron/Folic Acid [ Multi Tablet] 1 each PO DAILY 12/01/18 Cephalexin Monohydrate [Keflex 500 mg Capsule] 500 mg PO QID #20 capsule 09/16/20 Ibuprofen [Ibu] 800 mg PO Q8 10 Days #30 tablet 09/16/20 History of Present Illiness History of Present Illness: IRIS JOHNSON is a 35 year old female who presented miscarriaging at approximately 12 weeks with heavy vaginal bleeding. She had been seen earlier tonight with new diagnosis of miscarriage. At that time she had spotting and was found on US to have demise at 12 weeks. By LMP she was 15 weeks but appeared baby stopped growing at 12 weeks. She was given options for manangement of miscarriage and sent home to consider these with her . She returns now as heavy vaginal bleeding started and she passed the fetus at home. She continues to have heavy bleeding and cramping pain. Physical Exam - Physical Exam Vital Signs: Temp Pulse Resp BP Pulse Ox 98.7 F 91 18 107/66 99 09/16/20 06:33 09/16/20 06:33 09/16/20 06:33 09/16/20 06:33 09/16/20 06:33 Results Laboratory Results: WBC 16.9 10^3/uL (4.0-10.5) H 09/16/20 04:56 RBC 3.87 10^6/uL (3.72-5.28) 09/16/20 04:56 Hgb 11.0 g/dL (12.0-15.5) L 09/16/20 04:56 Hct 31.9 % (36.0-47.0) L 09/16/20 04:56 MCV 83 fl (80-97) 09/16/20 04:56 MCH 28.4 pg (27.0-33.4) 09/16/20 04:56 MCHC 34.4 g/dL (32.0-36.0) 09/16/20 04:56 RDW 12.8 % (11.5-14.0) 09/16/20 04:56 Plt Count 265 10^3/uL (150-450) 09/16/20 04:56 Lymph % (Auto) 7.8 % (13-45) L 09/16/20 04:56 [place] % (Auto) 3.9 % (3-13) 09/16/20 04:56 Eos % (Auto) 0.2 % (0-6) 09/16/20 04:56 Baso % (Auto) 0.1 % (0-2) 09/16/20 04:56 Absolute Neuts (auto) 14.9 10^3/uL (1.7-8.2) H 09/16/20 04:56 Absolute Lymphs (auto) 1.3 10^3/uL (0.5-4.7) 09/16/20 04:56 Absolute Monos (auto) 0.7 10^3/uL (0.1-1.4) 09/16/20 04:56 Absolute Eos (auto) 0.0 10^3/uL (0.0-0.6) 09/16/20 04:56 Absolute Basos (auto) 0.0 10^3/uL (0.0-0.2) 09/16/20 04:56 Seg Neutrophils % 88.0 % (42-78) H 09/16/20 04:56 Sodium 131.6 mmol/L (137-145) L 09/16/20 01:10 Potassium 3.7 mmol/L (3.6-5.0) 09/16/20 01:10 Chloride 102 mmol/L (98-107) 09/16/20 01:10 Carbon Dioxide 19 mmol/L (22-30) L 09/16/20 01:10 Anion Gap 11 (5-19) 09/16/20 01:10 BUN 12 mg/dL (7-20) 09/16/20 01:10 Creatinine 0.52 mg/dL (0.52-1.25) 09/16/20 01:10 Est GFR ( Amer) > 60 (>60) 09/16/20 01:10 Est GFR (MDRD) Non-Af > 60 (>60) 09/16/20 01:10 Glucose 134 mg/dL (75-110) H 09/16/20 01:10 Calcium 9.2 mg/dL (8.4-10.2) 09/16/20 01:10 Total Bilirubin 0.6 mg/dL (0.2-1.3) 09/16/20 01:10 Direct Bilirubin 0.0 mg/dL (0.0-0.4) 09/16/20 01:10 Neonat Total Bilirubin Not Reportable 09/16/20 01:10 Neonat Direct Bilirubin Not Reportable 09/16/20 01:10 Neonat Indirect Bili Not Reportable 09/16/20 01:10 AST 23 U/L (14-36) 09/16/20 01:10 ALT 9 U/L (<35) 09/16/20 01:10 Alkaline Phosphatase 78 U/L (38-126) 09/16/20 01:10 Total Protein 7.8 g/dL (6.3-8.2) 09/16/20 01:10 Albumin 3.9 g/dL (3.5-5.0) 09/16/20 01:10 Blood Type O POSITIVE 09/16/20 01:50 Antibody Screen NEGATIVE 09/16/20 01:50 Stroke Is this a Stroke Patient?: No Acute Heart Failure Is this a Heart Failure Patient?: No
== END 2020-09-16 07:22 | disposition home or self-care (01) ==
LOC: ER 00:17 → EH 01:48 → 2N 02:58
PROVIDERS: ADMIT Obstetrics & Gynecology; ATTEND Obstetrics & Gynecology
DX: O03.1 Delayed or excessive hemorrhage following incomplete spontaneous abortion (principal); Z90.49 Acquired absence of other specified parts of digestive tract
CPT/HCPCS: 86900; 86901; 36415; 86850; 85025; 80053; 88305 ×2; J3490; J2270; J7030; J7120; 88307